=== PATIENT | female | born 1985 | race Caucasian/White ===

== ENCOUNTER → 2017-02-27 | Emergency (ER) | payer SELFPAY ==
[~2017-02-27] MED LIST: Iohexol 350* (CONTRAST) 500 ML MDV IV ONE; Metoprolol Tartrate IV* 1 MG/ML 5 ML VIAL IV ONE; Metoprolol Tartrate IV* 1 MG/ML 5 ML VIAL ONE; Metoprolol Tartrate TAB* 25 MG PO ONE
[2017-02-27 18:13] LABS: Hematocrit 44 % (35-47); Mean Corpuscular HGB Conc 34 g/dl (31-36); Mean Corpuscular Hemoglobin 31 pg (27-31); Mean Corpuscular Volume 90 fL (80-97); Mean Platelet Volume 8 um3 (7.4-10.4); Red Blood Count 4.91 10^6/ul (4.0-5.4); Red Cell Distribution Width 14 % (10.5-15); White Blood Count 9.6 10^3/ul (3.5-10.8)
[2017-02-27 18:32] LABS: ALT 21 U/L (7-52); AST 17 U/L (13-39); Albumin 4.1 g/dL (3.2-5.2); Alkaline Phosphatase 54 U/L (34-104); Anion Gap 10 mmol/L (2-11); BUN/Creatinine Ratio 9.1 (8-20); Blood Urea Nitrogen 8 mg/dL (6-24); C Reactive Protein 15.35 mg/L (< 5.00); CO2 Carbon Dioxide 25 mmol/L (22-32); Calcium 9.6 mg/dL (8.6-10.3); Chloride 102 mmol/L (101-111); EGFR Non-African American 75.4 (>60); Globulin 3.5 g/dL (2-4); Glucose 82 mg/dL (70-100); Potassium 3.5 mmol/L (3.5-5.0); Sodium 137 mmol/L (133-145); Total Protein 7.6 g/dL (6.4-8.9)
[2017-02-27 18:53] LABS: TSH (Thyroid Stimulating Horm) 3.33 mcIU/mL (0.34-5.60)
--- NOTE | 2017-02-27 19:17 | RAD ---
INDICATION: Shortness of breath. COMPARISON: There are no prior studies available for comparison. TECHNIQUE: A CT angiogram of the chest was performed with intravenous following intravenous injection of 99 ml of Omnipaque 350 nonionic contrast. Contiguous axial sections were obtained from the lung apices through the lung bases. Images were reconstructed in the coronal and sagittal planes. FINDINGS: Examination of the pulmonary arteries is limited due to slight motion artifact and the patient's body habitus. No intraluminal filling defect or pulmonary embolism is seen. The heart is within normal limits in size. No pericardial effusion is present. The thoracic aorta is normal in caliber and demonstrates homogeneous contrast opacification. No significant enlarged mediastinal or hilar lymph nodes are seen. There is mild dependent bilateral lower lobe subsegmental atelectasis. The lungs are otherwise clear. No pleural effusion is seen. No significant focal osseous abnormality is seen. IMPRESSION: SLIGHTLY LIMITED EXAM, NO EVIDENCE FOR PULMONARY EMBOLISM.
--- NOTE | 2017-02-27 20:26 | CONSULT ---
Consult Consult: PCP: Gaby Date/Time: 02/27/20171944 Reason for Consult: management assistance HPI: Mrs Campos is a 31YO female HX SLE, asthma, & paroxysmal tachycardia who reports having a negative Holter performed by her PCP last summer. Yesterday she began feeling her tachycardia and some mild generalized malaise. 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 Today at work she began feeling her heart race and had a colleague take her vitals finding her HR to be in the 140s. She states her saO2 initially read in the high 80s, but quickly came up to the 90s after changing the saO2 monitor. She has had some 5/10 non- exertional non-radiating sharp chest pain which lasted ~5 minutes before spontaneously resolving. She has had some mild intermittent light-headedness and SOB, but no nausea, sweats, F/C, cough, congestion, or other issues. She has not had a flu shot this season. PMedHx SLE asthma pre-HTN Medications Nursing to reconcile. 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; full code status FamHx: Mother: alive, 55YO, rheumatoid arthritis & SLE; Father passed at 55YO 2nd suicide; Sister x2: rheumatoid & SLE; Sister x1: healthy ROS: as above, otherwise reviewed and all were negative vitals: Vital Signs Temp 36.9 C 02/27/17 15:26 Pulse 112 02/27/17 18:30 Resp 23 02/27/17 18:30 BP 166/94 02/27/17 18:30 Pulse Ox 99 02/27/17 18:30 Intake & Output 02/26/17 02/27/17 02/27/17 23:59 11:59 23:59 Weight 124.738 kg Constitutional: NAD, normally developed, super morbidly obese white female HEENM: atraumatic; sclera/conjunctiva: non-icteric/clear; blephara: normal; hearing: clinically intact; oropharynx: clear, mucosa moist Neck: soft tissue: non-tender; thyroid: normal Pulmonary: clear to auscultation bilaterally, good aeration, no accessory muscle use CV: RR/RR, normal S1S2, no carotid bruit, no jugular venous distention, 2+ B DP/ PT, no edema Abdominal: soft, non-distended, non-tender, no rebound/guarding/rigidity, normoactive bowel sounds, no hepatosplenomegaly or masses, no costovertebral angle tenderness Musculoskeletal: general: grossly intact; gait: stable Integumental: normal appearance and texture Psychiatric orientation: AA&O to PPS affect: calm mood: pleasant eye contact: good content: reliable responses: timely insight: good Testing: Lab Results 02/27/17 02/27/17 02/27/17 Range/Units 17:50 17:50 17:50 WBC 9.6 (3.5-10.8) 10^3/ul RBC 4.91 (4.0-5.4) 10^6/ul Hgb 15.0 (12.0-16.0) g/dl Hct 44 (35-47) % MCV 90 (80-97) fL MCH 31 (27-31) pg MCHC 34 (31-36) g/dl RDW 14 (10.5-15) % Plt Count 262 (150-450) 10^3/ul MPV 8 (7.4-10.4) um3 Neut % (Auto) 59.4 (38-83) % Lymph % (Auto) 31.6 (25-47) % [place] % (Auto) 6.5 (1-9) % Eos % (Auto) 1.9 (0-6) % Baso % (Auto) 0.6 (0-2) % Absolute Neuts (auto) 5.7 (1.5-7.7) 10^3/ul Absolute Lymphs (auto) 3.0 (1.0-4.8) 10^3/ul Absolute Monos (auto) 0.6 (0-0.8) 10^3/ul Absolute Eos (auto) 0.2 (0-0.6) 10^3/ul Absolute Basos (auto) 0.1 (0-0.2) 10^3/ul Absolute Nucleated RBC 0 10^3/ul Nucleated RBC % 0 INR (Anticoag Therapy) 0.85 L (0.89-1.11) APTT 29.0 (26.0-36.3) seconds Sodium 137 (133-145) mmol/L Potassium 3.5 (3.5-5.0) mmol/L Chloride 102 (101-111) mmol/L Carbon Dioxide 25 (22-32) mmol/L Anion Gap 10 (2-11) mmol/L BUN 8 (6-24) mg/dL Creatinine 0.88 (0.51-0.95) mg/dL Est GFR ( Amer) 97.0 (>60) Est GFR (Non-Af Amer) 75.4 (>60) BUN/Creatinine Ratio 9.1 (8-20) Glucose 82 (70-100) mg/dL Lactic Acid (0.5-2.0) mmol/L Calcium 9.6 (8.6-10.3) mg/dL Magnesium 2.0 (1.9-2.7) mg/dL Total Bilirubin 0.50 (0.2-1.0) mg/dL AST 17 (13-39) U/L ALT 21 (7-52) U/L Alkaline Phosphatase 54 (34-104) U/L Troponin I 0.00 (<0.04) ng/mL C-Reactive Protein 15.35 H (< 5.00) mg/L Total Protein 7.6 (6.4-8.9) g/dL Albumin 4.1 (3.2-5.2) g/dL Globulin 3.5 (2-4) g/dL Albumin/Globulin Ratio 1.2 (1-3) TSH 3.33 (0.34-5.60) mcIU/mL Beta HCG, Quant < 0.60 mIU/mL 02/27/17 Range/Units 17:50 WBC (3.5-10.8) 10^3/ul RBC (4.0-5.4) 10^6/ul Hgb (12.0-16.0) g/dl Hct (35-47) % MCV (80-97) fL MCH (27-31) pg MCHC (31-36) g/dl RDW (10.5-15) % Plt Count (150-450) 10^3/ul MPV (7.4-10.4) um3 Neut % (Auto) (38-83) % Lymph % (Auto) (25-47) % [place] % (Auto) (1-9) % Eos % (Auto) (0-6) % Baso % (Auto) (0-2) % Absolute Neuts (auto) (1.5-7.7) 10^3/ul Absolute Lymphs (auto) (1.0-4.8) 10^3/ul Absolute Monos (auto) (0-0.8) 10^3/ul Absolute Eos (auto) (0-0.6) 10^3/ul Absolute Basos (auto) (0-0.2) 10^3/ul Absolute Nucleated RBC 10^3/ul Nucleated RBC % INR (Anticoag Therapy) (0.89-1.11) APTT (26.0-36.3) seconds Sodium (133-145) mmol/L Potassium (3.5-5.0) mmol/L Chloride (101-111) mmol/L Carbon Dioxide (22-32) mmol/L Anion Gap (2-11) mmol/L BUN (6-24) mg/dL Creatinine (0.51-0.95) mg/dL Est GFR ( Amer) (>60) Est GFR (Non-Af Amer) (>60) BUN/Creatinine Ratio (8-20) Glucose (70-100) mg/dL Lactic Acid 1.3 (0.5-2.0) mmol/L Calcium (8.6-10.3) mg/dL Magnesium (1.9-2.7) mg/dL Total Bilirubin (0.2-1.0) mg/dL AST (13-39) U/L ALT (7-52) U/L Alkaline Phosphatase (34-104) U/L Troponin I (<0.04) ng/mL C-Reactive Protein (< 5.00) mg/L Total Protein (6.4-8.9) g/dL Albumin (3.2-5.2) g/dL Globulin (2-4) g/dL Albumin/Globulin Ratio (1-3) TSH (0.34-5.60) mcIU/mL Beta HCG, Quant mIU/mL ECG, personally reviewed: NSR rate 81, no ischemia, no ectopy CTA chest, personally reviewed: IMPRESSION: SLIGHTLY LIMITED EXAM, NO EVIDENCE FOR PULMONARY EMBOLISM. Impression: 31F HX SLE, asthma, pre-HTN, & sinus tachycardia presents with non- cardiac chest pain, palpitations, and tachycardia DIAGNOSIS & PLAN Primary non-cardiac chest pain, resolved : 3h troponin and recheck ECG : if negative, no further ischemic work up indicated & discharge home : return for further chest pain/SOB/nausea/sweats/palpitations/light-headedness tachycardia, resolved; elevated BP : add metoprolol IR 12.5mg BID : follow up with PCP in 2-4 weeks malaise : check rapid influenza Secondary SLE, inactive : CRP 15 : no arthralgias asthma, uncomplicated, no exacerbation : continue outpatient management
[2017-02-27] MEDS: NS 0.9% 1000 ML* 1,000 ML IV SCH ×2 (20:42→20:46)
--- NOTE | 2017-02-27 21:46 | ED ---
Nyasia Garcia Alfonso, scribed for Gregorio Darling MD on 02/27/17 at 2127 . Progress - Progress Note Progress Note: This patient was signed out from Dr. Rose, pending disposition, awaiting Dr. Wells's (hospitalist) evaluation. Per Dr. Wells, the patients condition is stable and she will be discharged to home with prescription. Course/Dx - Course Course Of Treatment: WELL IN ED. SEEN BY HOSPITALIST IN ED. SEE HIS CONSULTATION. NO CRITICAL CARE TIME. - Diagnoses Provider Diagnoses: Chest pain, Tachycardia, Hypertension The documentation as recorded by the [email or web address] pratt Alfonso accurately reflects the service I personally performed and the decisions made by , Gregorio Darling MD.
[2017-02-27 22:20] VITALS: BP 128/78
--- NOTE | 2017-03-02 14:40 | ED ---
Christiana Garcia Thomas, scribed for Joselo Rose MD on 02/27/17 at 2019 . HPI Chest Pain - HPI Summary HPI Summary: The pt is a 31 y/o F presenting to the ED c/o a sharp CP that began yesterday. There is no discernable pattern to the pain. The patient has treated the pain with nothing [employer]. Pt additionally c/o a cough, SOB (especially when her HR is increased), and generalized malaise. Pt denies leg pain and leg swelling. The patient works at [employer] [place] and when she was at work today she put herself on the nursing monitor because she was feeling ill. This showed heart rate at 147 BPM, oxygen saturation in the 80s, and elevated BP. She says she is kind of anxious. She does not have a Hx of blood clots. She is on oral contraceptives. She did make a 5-hour car ride 3 or four days ago with only one stop. PMHx includes SLE and exercise-induced asthma. Her current symptoms do not feel like her asthma symptoms. 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 She is currently not being treated for her SLE because she is on a waiting list, and she has been on a waiting list for 3 years. - History of Current Complaint Chief Complaint: EDDysrhythmPalp Time Seen by Provider: 02/27/17 17:51 Hx Obtained From: Patient Onset/Duration: Started Days Ago - onset yesterday, Still Present Timing: Intermittent Current Severity: None Pain Intensity: 0 Pain Scale Used: 0-10 Numeric Character: Sharp/Stabbing Aggravating Factor(s): Nothing Alleviating Factor(s): Nothing Associated Signs and Symptoms: Positive: Anxiety, Shortness of Breath, Cough, Other: - Geeneralized malaise; NEG: leg pain, leg swelling Related History: Similar Episode/Dx as: - Oral contraceptives, recent car trip - Allergy/Home Medications Allergies/Adverse Reactions: Allergies Allergy/AdvReac Type Severity Reaction Status Date / Time No Known Allergies Allergy Verified 02/27/17 16:25 PMH/Surg Hx/FS Hx/Imm Hx Previously Healthy: No Endocrine/Hematology History: Reports: Hx Systemic Lupus Erythematosus Denies: Hx Diabetes Cardiovascular History: Denies: Hx Hypertension Respiratory History: Reports: Hx Asthma Infectious Disease History: No Infectious Disease History: Denies: Traveled Outside the [place] in Last 30 Days - Family History Known Family History: Negative: Blood Disorder - Social History Alcohol Use: Rare Substance Use Type: Reports: None Smoking Status (MU): Never Smoked Tobacco Review of Systems Positive: Other - Generalized malaise. Negative: Fever, Chills Negative: Erythema - eyes Negative: Sore Throat Positive: Chest Pain Positive: Shortness Of Breath, Cough, Other - Tachycardic Negative: Abdominal Pain, Vomiting, Nausea Negative: dysuria, hematuria Negative: Myalgia, Edema - legs, Other - NEG: leg pain, swelling Negative: Rash Neurological: Other - NEGATIVE: dizziness All Other Systems Reviewed And Are Negative: Yes Physical Exam - Summary Physical Exam Summary: Constitutional: Well-developed, Well-nourished, Obese, Alert. (-) Distressed Skin: Warm, Dry HENT: Normocephalic; Atraumatic Eyes: Conjunctiva normal Neck: Musculoskeletal ROM normal neck. (-) JVD, (-) Stridor, (-) Tracheal deviation Cardio: Rhythm regular, rate normal, Heart sounds normal; Intact distal pulses; The pedal pulses are 2+ and symmetric. Radial pulses are 2+ and symmetric. (-) Murmur Pulmonary/Chest wall: Effort normal. (-) Respiratory distress, (-) Wheezes, (-) Rales Abd: Soft, (-) Tenderness, (-) Distension, (-) Guarding, (-) Rebound Musculoskeletal: (-) Edema Lymph: (-) Cervical adenopathy Neuro: Alert, Oriented x3 Psych: Mood and affect Normal Triage Information Reviewed: Yes Vital Signs On Initial Exam: Initial Vitals Temp Pulse Resp BP Pulse Ox 98.5 F 125 18 148/97 98 02/27/17 15:26 02/27/17 15:26 02/27/17 15:26 02/27/17 15:26 02/27/17 15:26 Vital Signs Reviewed: Yes - [place] Coma Scale Coma Scale Total: 15 Diagnostics - Vital Signs Vital Signs Temp Pulse Resp BP Pulse Ox 02/27/17 18:30 112 23 166/94 99 02/27/17 18:00 100 25 100 02/27/17 17:00 107 29 147/100 100 02/27/17 16:30 104 27 162/85 99 02/27/17 16:28 112 25 99 02/27/17 16:25 153/100 02/27/17 15:26 98.5 F 125 18 148/97 98 - Laboratory Lab Results: Lab Results 02/27/17 02/27/17 02/27/17 Range/Units 17:50 17:50 17:50 WBC 9.6 (3.5-10.8) 10^3/ul RBC 4.91 (4.0-5.4) 10^6/ul Hgb 15.0 (12.0-16.0) g/dl Hct 44 (35-47) % MCV 90 (80-97) fL MCH 31 (27-31) pg MCHC 34 (31-36) g/dl RDW 14 (10.5-15) % Plt Count 262 (150-450) 10^3/ul MPV 8 (7.4-10.4) um3 Neut % (Auto) 59.4 (38-83) % Lymph % (Auto) 31.6 (25-47) % [place] % (Auto) 6.5 (1-9) % Eos % (Auto) 1.9 (0-6) % Baso % (Auto) 0.6 (0-2) % Absolute Neuts (auto) 5.7 (1.5-7.7) 10^3/ul Absolute Lymphs (auto) 3.0 (1.0-4.8) 10^3/ul Absolute Monos (auto) 0.6 (0-0.8) 10^3/ul Absolute Eos (auto) 0.2 (0-0.6) 10^3/ul Absolute Basos (auto) 0.1 (0-0.2) 10^3/ul Absolute Nucleated RBC 0 10^3/ul Nucleated RBC % 0 INR (Anticoag Therapy) 0.85 L (0.89-1.11) APTT 29.0 (26.0-36.3) seconds Sodium 137 (133-145) mmol/L Potassium 3.5 (3.5-5.0) mmol/L Chloride 102 (101-111) mmol/L Carbon Dioxide 25 (22-32) mmol/L Anion Gap 10 (2-11) mmol/L BUN 8 (6-24) mg/dL Creatinine 0.88 (0.51-0.95) mg/dL Est GFR ( Amer) 97.0 (>60) Est GFR (Non-Af Amer) 75.4 (>60) BUN/Creatinine Ratio 9.1 (8-20) Glucose 82 (70-100) mg/dL Lactic Acid (0.5-2.0) mmol/L Calcium 9.6 (8.6-10.3) mg/dL Magnesium 2.0 (1.9-2.7) mg/dL Total Bilirubin 0.50 (0.2-1.0) mg/dL AST 17 (13-39) U/L ALT 21 (7-52) U/L Alkaline Phosphatase 54 (34-104) U/L Troponin I 0.00 (<0.04) ng/mL C-Reactive Protein 15.35 H (< 5.00) mg/L Total Protein 7.6 (6.4-8.9) g/dL Albumin 4.1 (3.2-5.2) g/dL Globulin 3.5 (2-4) g/dL Albumin/Globulin Ratio 1.2 (1-3) TSH 3.33 (0.34-5.60) mcIU/mL Beta HCG, Quant < 0.60 mIU/mL 02/27/17 Range/Units 17:50 WBC (3.5-10.8) 10^3/ul RBC (4.0-5.4) 10^6/ul Hgb (12.0-16.0) g/dl Hct (35-47) % MCV (80-97) fL MCH (27-31) pg MCHC (31-36) g/dl RDW (10.5-15) % Plt Count (150-450) 10^3/ul MPV (7.4-10.4) um3 Neut % (Auto) (38-83) % Lymph % (Auto) (25-47) % [place] % (Auto) (1-9) % Eos % (Auto) (0-6) % Baso % (Auto) (0-2) % Absolute Neuts (auto) (1.5-7.7) 10^3/ul Absolute Lymphs (auto) (1.0-4.8) 10^3/ul Absolute Monos (auto) (0-0.8) 10^3/ul Absolute Eos (auto) (0-0.6) 10^3/ul Absolute Basos (auto) (0-0.2) 10^3/ul Absolute Nucleated RBC 10^3/ul Nucleated RBC % INR (Anticoag Therapy) (0.89-1.11) APTT (26.0-36.3) seconds Sodium (133-145) mmol/L Potassium (3.5-5.0) mmol/L Chloride (101-111) mmol/L Carbon Dioxide (22-32) mmol/L Anion Gap (2-11) mmol/L BUN (6-24) mg/dL Creatinine (0.51-0.95) mg/dL Est GFR ( Amer) (>60) Est GFR (Non-Af Amer) (>60) BUN/Creatinine Ratio (8-20) Glucose (70-100) mg/dL Lactic Acid 1.3 (0.5-2.0) mmol/L Calcium (8.6-10.3) mg/dL Magnesium (1.9-2.7) mg/dL Total Bilirubin (0.2-1.0) mg/dL AST (13-39) U/L ALT (7-52) U/L Alkaline Phosphatase (34-104) U/L Troponin I (<0.04) ng/mL C-Reactive Protein (< 5.00) mg/L Total Protein (6.4-8.9) g/dL Albumin (3.2-5.2) g/dL Globulin (2-4) g/dL Albumin/Globulin Ratio (1-3) TSH (0.34-5.60) mcIU/mL Beta HCG, Quant mIU/mL Result Diagrams: 02/27/17 17:50 02/27/17 17:50 Lab Statement: Any lab studies that have been ordered have been reviewed, and results considered in the medical decision making process. - CT CTA Chest/Thorax CT Interpretation: No Acute Changes - SLIGHTLY LIMITED EXAM, NO EVIDENCE FOR PULMONARY EMBOLISM. ED physician has reviewed this report and agrees. CT Interpretation Completed By: Radiologist Chest Pain Course/Dx - Course Assessment/Plan: The pt is a 31 y/o F presenting to the ED c/o a sharp CP that began yesterday. There is no discernable pattern to the pain. The patient has treated the pain with nothing [employer]. Pt additionally c/o a cough, SOB (especially when her HR is increased), and generalized malaise. Pt denies leg pain and leg swelling. The patient works at [employer] [facility] [facility] [place] and when she was at work today she put herself on the nursing monitor because she was feeling ill. This showed heart rate at 147 BPM, oxygen saturation in the 80s, and elevated BP. She says she is kind of anxious. She does not have a Hx of blood clots. She is on oral contraceptives. She did make a 5-hour car ride 3 or four days ago with only one stop. PMHx includes SLE and exercise-induced asthma. Her current symptoms do not feel like her asthma symptoms. 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 She is currently not being treated for her SLE because she is on a waiting list, and she has been on a waiting list for 3 years. In the ED course the patient was given IV fluids and metoprolol. EKG was obtained, see [facility] records for impression. Bloodwork was obtained. CTA Chest/Thorax shows SLIGHTLY LIMITED EXAM, NO EVIDENCE FOR PULMONARY EMBOLISM. ED physician has reviewed this report and agrees. She is diagnosed with hypertensive urgency. She is admitted to [facility] [place] by Dr. Wells at 19:23. Patient is agreeable to this plan. - Diagnoses Provider Diagnoses: Hypertensive urgency - Provider Notifications Discussed Care Of Patient With: Malik Wells Time Discussed With Above Provider: 19:23 Instructed by Provider To: Other - Dr. Wells, vacuum pan operator, admits the patient to [facility] [place]. Discharge - Discharge Plan Condition: Fair Disposition: ADMITTED TO [facility] Discharge Disposition Comment: By Dr. Wells. The documentation as recorded by the Christiana haddad Thomas accurately reflects the service I personally performed and the decisions made by me, Joselo Rose MD.
== END | disposition home or self-care (01) ==
LOC: ED 15:24
DX: R07.9 Chest pain, unspecified (principal); R00.0 Tachycardia, unspecified; I10 Essential (primary) hypertension
CPT/HCPCS: 36415; 71275; 80053; 83605; 83735; 84443; 84484; 84702; 85025; 85610; 85730; 86140; 87040; 87502; 93005; 99284; A9270-GY; Q9967